=== PATIENT | female | born 1980 | race Caucasian/White ===

== ENCOUNTER → 2016-12-22 | Outpatient (CLI) | payer BC ==
--- NOTE | 2016-12-23 06:01 | US ---
EXAMINATION TYPE: US thyroid st tissue head/neck DATE OF EXAM: 12/22/2016 6:09 PM COMPARISON: NONE CLINICAL HISTORY: E04.9 Goiter. Doctor felt thyroid was enlarged on physical exam GLAND SIZE: Right Lobe: 4.2 x 1.4 x 1.4 cm Overall Parenchyma: homogenous Left Lobe: 4.8 x 1.2 x 1.2 cm Overall Parenchyma: homogeneous Isthmus Thickness: 0.3 cm NODULES RIGHT: # of nodules measured on right: 0 LEFT: # of nodules measured on left: 1 1. 0.5 X 0.3 x 0.5 cm hypoechoic solid nodule at the lower pole with well-defined margins. This no dule is wider than tall and shows no intranodular vascularity. Prior size: No previous ISTHMUS: # of nodules measured in the isthmus: 0 TECHNOLOGIST IMPRESSION: Bilateral neck scanned, probable lymph node visualized within the right nec k measuring 1.2 x 0.4 x 0.6 cm Thyroid gland is normal in size and homogeneous in echotexture. Technologist identifies benign subcen timeter lymph node in the right neck. In the left thyroid medial lower pole technologist identifies 5 mm slightly hypoechoic solid nodule. IMPRESSION: Thyroid gland is normal in size, no worrisome greater than 1 cm solid or cystic nodules are seen.
== END | disposition home or self-care (01) ==
LOC: RADUSMAIN 17:50
PROVIDERS: ATTEND Family Medicine
DX: E04.9 Nontoxic goiter, unspecified (principal)
CPT/HCPCS: 76536

== ENCOUNTER 2019-07-05 13:13 | Inpatient (IN) | payer BC ==
--- NOTE | 2019-07-05 13:45 | ED ---
Abdominal Pain HPI - General Source: patient Mode of arrival: ambulatory Limitations: no limitations <Naz Santos - Last Filed: 07/05/19 16:47> <Jazmín Stone - Last Filed: 07/07/19 14:46> - General Chief Complaint: Abdominal Pain Stated Complaint: Flank/Back Pain Time Seen by Provider: 07/05/19 13:37 - History of Present Illness Initial Comments: 38-year-old female presenting today for chief complaint of right upper quadrant abdominal pain that radiates to the back since 12AM today. States she was woke up tonight from right upper quadrant abdominal pain that radiates towards the back. Patient states that he was woken up in the middle of night with pain, nausea. Patient states she had multiple episodes of yellow vomit this morning. Patient admits to softer stools yesterday. Pain is sharp in nature like a knife, 10/10. That increased with ingestion of food. Patient denies fever, no hematochezia, emesis patient does experience this before. Patient has a history of previous history of hysterectomy otherwise no other abdominal surgeries. Patient last ate cracker earlier this morning > 4 hours prior to arrival in the ER. Patient was drinking water upon arrival to the ER. Remaining ROS (-) inclu ding chest pain, URI symptoms, SOB. Denies tylenol abuse. (Naz Santos) - Related Data Home Medications Medication Instructions Recorded Confirmed No Known Home Medications 07/05/19 07/05/19 Allergies Allergy/AdvReac Type Severity Reaction Status Date / Time No Known Allergies Allergy Verified 07/05/19 14:06 Review of Systems ROS Other: All systems not noted in ROS Statement are negative. <Naz Santos - Last Filed: 07/05/19 16:47> ROS Other: All systems not noted in ROS Statement are negative. <Jazmín Stone - Last Filed: 07/07/19 14:46> ROS Statement: Those systems with pertinent positive or pertinent negative responses have been documented in the HPI. Past Medical History Past Medical History: No Reported History History of Any Multi-Drug Resistant Organisms: None Reported Past Surgical History: Hysterectomy Past Psychological History: No Psychological Hx Reported Smoking Status: Never smoker Past Alcohol Use History: None Reported Past Drug Use History: None Reported <Naz Santos - Last Filed: 07/05/19 16:47> General Exam Limitations: no limitations <Naz Santos - Last Filed: 07/05/19 16:47> - General Exam Comments Initial Comments: General: The patient is awake and alert, in no distress, and does not appear acutely ill. Eye: Pupils are equal, round and reactive to light, extra-ocular movements are intact. No nystagmus. There is normal conjunctiva bilaterally. No signs of icterus. Cardiovascular: There is a regular rate and rhythm. No murmur, rub or gallop is appreciated. Respiratory: Lungs are clear to auscultation, respirations are non-labored, breath sounds are equal. No wheezes, stridor, rales, or rhonchi. Gastrointestinal: Soft, non-distended, significant RUQ tenderness, positive Delgadillo sign the abdomen is otherwise without masses or organomegaly noted. There is guarding noted, no rigidity or lower abdominal tenderness. Musculoskeletal: Normal ROM, no tenderness. Strength 5/5. Sensation intact. Radial pulses equal bilaterally 2+. Neurological: A&O x 3. CN II-XII intact grossly, There are no obvious motor or sensory deficits. Coordination appears grossly intact. Speech is normal. Skin: Skin is warm and dry and no rashes or lesions are noted. Psychiatric: Cooperative, appropriate mood & affect, normal judgment. (Naz Santos) Course Vital Signs 07/05/19 07/05/19 07/05/19 13:22 15:51 17:15 Temperature 98.1 F 97.8 F Pulse Rate 88 77 70 Respiratory 18 18 18 Rate Blood Pressure 134/92 110/85 105/69 O2 Sat by Pulse 99 97 97 Oximetry Medical Decision Making - Lab Data Result diagrams: 07/05/19 14:07 07/05/19 14:07 <Naz Santos - Last Filed: 07/05/19 16:47> - Lab Data Result diagrams: 07/07/19 06:08 07/07/19 06:08 <Jazmín Stone - Last Filed: 07/07/19 14:46> - Medical Decision Making 38-year-old male presents emergency department for chief complaint of abdominal pain, RUQ. Examinations are significantly elevated as well as alkaline phosphatase. Patient denies any Tylenol abuse or alcohol abuse. Hepatitis a negative. Ultrasound revealed cholelithiasis and sludge no fluid surrounding the abdomen-the patients laboratory and history are concerning of developing acute cholecystitis. Discussed case, labs and imaging with attending Dr. Stone. She spoke with Dr. Lawrence who suggests admission to prior to surgical consultation. Patient admitted, and agreeable with care plan. (HoracesaraNaz Brisa) I was available for consultation in the emergency department. The history and physical exam were done by the midlevel provider. I was consulted for this patients care. I reviewed the case with the midlevel provider and based on their presentation of the patient, I agree with the assessment, medical decision making and plan of care as documented. I discussed the case with Dr. Sanchez who accepted admission with Dr. Lawrence to consult. (Jazmín Stone) - Lab Data Lab Results 07/05/19 07/05/19 07/05/19 Range/Units 14:07 14:07 14:07 WBC 5.2 (3.8-10.6) k/uL RBC 5.01 (3.80-5.40) m/uL Hgb 15.7 (11.4-16.0) gm/dL Hct 43.5 (34.0-46.0) % MCV 86.8 (80.0-100.0) fL MCH 31.2 (25.0-35.0) pg MCHC 36.0 (31.0-37.0) g/dL RDW 12.5 (11.5-15.5) % Plt Count 214 (150-450) k/uL Neutrophils % 68 % Lymphocytes % 22 % Monocytes % 8 % Eosinophils % 0 % Basophils % 0 % Neutrophils # 3.5 (1.3-7.7) k/uL Lymphocytes # 1.1 (1.0-4.8) k/uL Monocytes # 0.4 (0-1.0) k/uL Eosinophils # 0.0 (0-0.7) k/uL Basophils # 0.0 (0-0.2) k/uL Sodium 142 (137-145) mmol/L Potassium 3.7 (3.5-5.1) mmol/L Chloride 104 (98-107) mmol/L Carbon Dioxide 29 (22-30) mmol/L Anion Gap 9 mmol/L BUN 13 (7-17) mg/dL Creatinine 0.77 (0.52-1.04) mg/dL Est GFR (CKD-EPI)AfAm >90 (>60 ml/min/1.73 sqM) Est GFR (CKD-EPI)NonAf >90 (>60 ml/min/1.73 sqM) Glucose 112 H (74-99) mg/dL Calcium 9.2 (8.4-10.2) mg/dL Total Bilirubin 3.9 H (0.2-1.3) mg/dL AST 1121 H (14-36) U/L ALT 1040 H (9-52) U/L Alkaline Phosphatase 200 H (38-126) U/L Total Protein 8.0 (6.3-8.2) g/dL Albumin 4.5 (3.5-5.0) g/dL Amylase 32 (30-110) U/L Lipase 102 (23-300) U/L Urine Color Urine Appearance (Clear) Urine pH (5.0-8.0) Ur Specific [place] (1.001-1.035) Urine Protein (Negative) Urine Glucose (UA) (Negative) Urine Ketones (Negative) Urine Blood (Negative) Urine Nitrite (Negative) Urine Bilirubin (Negative) Urine Urobilinogen (<2.0) mg/dL Ur Leukocyte Esterase (Negative) Urine HCG, Qual Not Detected (Not Detectd) Hepatitis A IgM Ab Hep Bs Antigen (Non-Reactive) Hep B Core IgM Ab (Non-Reactive) Hep C IgG Ab (Non-Reactive) 07/05/19 07/05/19 07/05/19 Range/Units 14:07 14:07 15:25 WBC (3.8-10.6) k/uL RBC (3.80-5.40) m/uL Hgb (11.4-16.0) gm/dL Hct (34.0-46.0) % MCV (80.0-100.0) fL MCH (25.0-35.0) pg MCHC (31.0-37.0) g/dL RDW (11.5-15.5) % Plt Count (150-450) k/uL Neutrophils % % Lymphocytes % % Monocytes % % Eosinophils % % Basophils % % Neutrophils # (1.3-7.7) k/uL Lymphocytes # (1.0-4.8) k/uL Monocytes # (0-1.0) k/uL Eosinophils # (0-0.7) k/uL Basophils # (0-0.2) k/uL Sodium (137-145) mmol/L Potassium (3.5-5.1) mmol/L Chloride (98-107) mmol/L Carbon Dioxide (22-30) mmol/L Anion Gap mmol/L BUN (7-17) mg/dL Creatinine (0.52-1.04) mg/dL Est GFR (CKD-EPI)AfAm (>60 ml/min/1.73 sqM) Est GFR (CKD-EPI)NonAf (>60 ml/min/1.73 sqM) Glucose (74-99) mg/dL Calcium (8.4-10.2) mg/dL Total Bilirubin (0.2-1.3) mg/dL AST (14-36) U/L ALT (9-52) U/L Alkaline Phosphatase (38-126) U/L Total Protein (6.3-8.2) g/dL Albumin (3.5-5.0) g/dL Amylase (30-110) U/L Lipase (23-300) U/L Urine Color Dark Yellow Urine Appearance Clear (Clear) Urine pH 7.0 (5.0-8.0) Ur Specific [place] 1.022 (1.001-1.035) Urine Protein Trace H (Negative) Urine Glucose (UA) Negative (Negative) Urine Ketones Negative (Negative) Urine Blood Negative (Negative) Urine Nitrite Negative (Negative) Urine Bilirubin 2+ H (Negative) Urine Urobilinogen 8.0 (<2.0) mg/dL Ur Leukocyte Esterase Negative (Negative) Urine HCG, Qual (Not Detectd) Hepatitis A IgM Ab NEGATIVE Hep Bs Antigen Non-Reactive (Non-Reactive) Hep B Core IgM Ab Non-Reactive (Non-Reactive) Hep C IgG Ab Non-Reactive (Non-Reactive) Disposition Is patient prescribed a controlled substance at d/c from ED?: No Time of Disposition: 16:41 Decision to Admit Reason: Admit from EC Decision Date: 07/05/19 Decision Time: 16:41 <Naz Santos - Last Filed: 07/05/19 16:47> <Jazmín Stone - Last Filed: 07/07/19 14:46> Clinical Impression: Cholecystitis, Abdominal pain, Elevated transaminase level, Elevated alkaline phosphatase level Disposition: ADMITTED IP TO THIS HOSP Condition: Stable
[2019-07-05] MEDS ORDERED: ONDANSETRON 4 MG/2 ML VIAL IVP STA (14:06)
[2019-07-05 14:31] LABS: Appearance,Urine Clear (Clear); Bilirubin,Urine 2+ (Negative); Blood,Urine Negative (Negative); Color,Urine Dark Yellow; Glucose,Urine (UA) Negative (Negative); Ketones,Urine Negative (Negative); Leukocyte Esterase,Urine Negative (Negative); Nitrite,Urine Negative (Negative); Protein,Urine Trace (Negative); Specific Gravity,Urine 1.022 (1.001-1.035)
[2019-07-05 14:32] LABS: Basophils % (A) 0 %; Eosinophils % (A) 0 %; HCT 43.5 % (34.0-46.0); HGB 15.7 gm/dL (11.4-16.0); Lymphocytes # (A) 1.1 k/uL (1.0-4.8); Lymphocytes % (A) 22 %; MCH 31.2 pg (25.0-35.0); MCV 86.8 fL (80.0-100.0); Monocytes # (A) 0.4 k/uL (0-1.0); Monocytes % (A) 8 %; Neutrophils # (A) 3.5 k/uL (1.3-7.7); Neutrophils % (A) 68 %; Platelet Count 214 k/uL (150-450); RBC 5.01 m/uL (3.80-5.40); RDW 12.5 % (11.5-15.5); WBC 5.2 k/uL (3.8-10.6)
[2019-07-05 14:36] LABS: African American GFR (CKD) >90 (>60 ml/min/1.73 sqM); Albumin 4.5 g/dL (3.5-5.0); Alkaline Phosphatase 200 U/L (38-126); Amylase 32 U/L (30-110); Anion Gap 9 mmol/L; Blood Urea Nitrogen 13 mg/dL (7-17); Calcium 9.2 mg/dL (8.4-10.2); Carbon Dioxide 29 mmol/L (22-30); Chloride 104 mmol/L (98-107); Glucose 112 mg/dL (74-99); Potassium 3.7 mmol/L (3.5-5.1); Sodium 142 mmol/L (137-145); Total Bilirubin 3.9 mg/dL (0.2-1.3)
[2019-07-05 14:42] LABS: AST 1121 U/L (14-36)
[2019-07-05 14:54] LABS: ALT 1040 U/L (9-52)
[2019-07-05] MEDS ORDERED: PIPERACILLIN-TAZOBACTAM 3.375 GM in SODIUM CHLORIDE 0.9% 100 ML IVPB STA (15:19)
[2019-07-05] MEDS ORDERED: MORPHINE SULFATE 4 MG/ML SYRINGE IVP STA (15:32)
--- NOTE | 2019-07-05 15:47 | US ---
EXAMINATION TYPE: US abdomen limited DATE OF EXAM: 07/05/2019 COMPARISON: NONE CLINICAL HISTORY: RUQ pain, r/o adán. abd pain with nausea EXAM MEASUREMENTS: Liver Length: 17.2 cm Gallbladder Wall: 0.2 cm CBD: 0.6 cm Right Kidney: 9.5 x 5.0 x 4.8 cm Pancreas: bowel gas obscures most of pancreas Liver: intercostal imaging due to bowel gas and difficult to penetrate Gallbladder: multiple stones seen within neck, moved slightly when rolled LLD Evidence for sonographic Delgadillo's sign: yes CBD: wnl Right Kidney: wnl IMPRESSION: There is cholelithiasis and biliary sludge as well as a positive sonographic Delgadillo sign, however, the common bile duct is within normal limits and no pericholecystic fluid is seen. Addition ally there is no pericholecystic fluid nor gallbladder wall thickening. Acute cholecystitis is not fa vored sonographically. If clinical exam and laboratory values are fitting surgical consultation and H CHAD scan could be considered regardless of the known gallstones.
[2019-07-05 16:24] LABS: Hepatitis A Antibody IgM NEGATIVE
[2019-07-05] MEDS ORDERED: HYDROmorphone 0.5 MG/0.5 ML SYRINGE IVP STA (16:26)
[2019-07-05] MEDS ORDERED: NALOXONE 0.4 MG/ML 1 ML VIAL IV PRN (16:39)
[2019-07-05] MEDS: SODIUM CHLORIDE 0.9% 1,000 ML IV SCH (17:15)
[2019-07-05] MEDS: HYDROmorphone 0.5 MG/0.5 ML SYRINGE IVP PRN ×2 (18:14→23:50)
[2019-07-05] MEDS: LEVOFLOXACIN 500MG-D5W PMX 500 MG in DEXTROSE/WATER 1 100ML.BAG IVPB SCH (19:35)
[2019-07-05] MEDS: FAMOTIDINE 20 MG/2 ML VIAL IV SCH (20:00)
[2019-07-05] MEDS: ONDANSETRON 4 MG/2 ML VIAL IVP PRN (20:01)
[2019-07-05] MEDS: HEPARIN SODIUM,PORCINE 5,000 UNIT/ML 1 ML VIAL SQ SCH (23:52)
[2019-07-05 23:53] LABS: Hepatitis B Core IgM Non-Reactive (Non-Reactive); Hepatitis B Surface Antigen Non-Reactive (Non-Reactive); Hepatitis C IgG Antibody Non-Reactive (Non-Reactive)
[2019-07-06] MEDS: ONDANSETRON 4 MG/2 ML VIAL IVP PRN ×2 (05:16→15:35)
[2019-07-06] MEDS: MORPHINE SULFATE 4 MG/ML SYRINGE IVP PRN ×2 (06:28→15:27)
[2019-07-06] MEDS: SODIUM CHLORIDE 0.9% 1,000 ML IV SCH ×2 (06:30→13:38)
[2019-07-06] MEDS: HEPARIN SODIUM,PORCINE 5,000 UNIT/ML 1 ML VIAL SQ SCH ×3 (08:47→15:35)
[2019-07-06] MEDS: FAMOTIDINE 20 MG/2 ML VIAL IV SCH ×2 (08:51→21:22)
[2019-07-06 08:54] LABS: Basophils % (A) 1 %; Eosinophils % (A) 1 %; HCT 40.3 % (34.0-46.0); HGB 13.7 gm/dL (11.4-16.0); Lymphocytes # (A) 1.1 k/uL (1.0-4.8); Lymphocytes % (A) 25 %; MCHC 34.1 g/dL (31.0-37.0); Mean Platelet Volume 7.2; Monocytes # (A) 0.3 k/uL (0-1.0); Monocytes % (A) 7 %; Neutrophils # (A) 2.8 k/uL (1.3-7.7); Neutrophils % (A) 65 %; Platelet Count 158 k/uL (150-450); RBC 4.43 m/uL (3.80-5.40); RDW 12.8 % (11.5-15.5); WBC 4.2 k/uL (3.8-10.6)
[2019-07-06 09:13] LABS: ALT 734 U/L (9-52); AST 436 U/L (14-36); African American GFR (CKD) >90 (>60 ml/min/1.73 sqM); Albumin 3.5 g/dL (3.5-5.0); Alkaline Phosphatase 187 U/L (38-126); Anion Gap 5 mmol/L; Blood Urea Nitrogen 11 mg/dL (7-17); Calcium 8.1 mg/dL (8.4-10.2); Carbon Dioxide 28 mmol/L (22-30); Chloride 107 mmol/L (98-107); Glucose 95 mg/dL (74-99); Potassium 4.2 mmol/L (3.5-5.1); Sodium 140 mmol/L (137-145); Total Bilirubin 3.3 mg/dL (0.2-1.3); Total Protein 6.3 g/dL (6.3-8.2)
--- NOTE | 2019-07-06 10:49 | P.CONS ---
History of Present Illness - Reason for Consult Consult date: 07/06/19 Choledocholithiasis Requesting physician: Cruzito Sanchez - Chief Complaint Right upper quadrant abdominal pain - History of Present Illness 38 year female admitted with acute right upper quadrant abdominal pain x 1 day with elevated liver enzymes. No hx of this type of pain. Total bilirubin 3.9. AST 1121. ALT 1040. EP 200. Today total bilirubin is 3.3. AST 436. ALT 734. AP 187. White count 4.2. Hemoglobin 13.7. Platelet 158. Hepatitis serology negative. HCG negative. No hx of ETOH, hepatitis or illicit drug abuse. Ultrasound abdomen cholelithiasis biliary sludge CBD 0.6 cm. No pericholecystic fluid or gallbladder wall thickening. Review of Systems Constitutional: Denies fever, chills, sweats, weight gain, or loss. HEENT: Negative for migraines, blurred vision or loss, earaches, drainage, tinnitus, oral mucosal lesions, dysphagia, or odynophagia. CARDIAC: Negative for chest pain, arrhythmias, or palpitation. RESPIRATORY: Negative for shortness of breath, hemoptysis, cough, or sputum production. GI: See HPI for pertinent findings. : Negative for hematuria, urgency, frequency, polyuria, or dysuria. GYNc: Denies possibility of . Negative vaginal discharge. MUSCULOSKELETAL: Negative for muscle aches, swelling, arthritis, and arthralgias. NEUROLOGIC: Negative for stroke or TIA. ENDOCRINE: Negative for thyroid problems. SKIN: Negative for rash or itching. PSYCHIATRIC: Negative history for depression and anxiety Past Medical History Past Medical History: No Reported History History of Any Multi-Drug Resistant Organisms: None Reported Past Surgical History: Hysterectomy Past Psychological History: No Psychological Hx Reported Smoking Status: Never smoker Past Alcohol Use History: None Reported Past Drug Use History: None Reported Medications and Allergies Home Medications Medication Instructions Recorded Confirmed Type No Known Home Medications 07/05/19 07/05/19 History Allergies Allergy/AdvReac Type Severity Reaction Status Date / Time No Known Allergies Allergy Verified 07/05/19 14:06 Physical Exam Vitals: Vital Signs Temp Pulse Pulse Resp BP BP Pulse Ox 07/06/19 08:00 16 07/06/19 07:00 98.6 F 58 L 16 106/65 98 07/06/19 01:55 98.0 F 70 17 109/70 98 07/05/19 19:13 98.1 F 64 18 101/66 98 07/05/19 18:10 98.0 F 66 115/73 07/05/19 17:15 97.8 F 70 18 105/69 97 07/05/19 15:51 77 18 110/85 97 07/05/19 13:22 98.1 F 88 18 134/92 99 Intake and Output 07/05/19 07/06/19 07/06/19 22:59 06:59 14:59 Intake Total 200 Balance 200 Intake: Intake, IV Titration 200 Amount Sodium Chloride 0.9% 1, 200 000 ml @ 100 mls/hr IV . Q10H [facility] Rx#:[id number] Other: Voiding Method Toilet # Voids 1 1 General appearance: The patient is alert, oriented, in no acute distress. HET: Head is normocephalic and atraumatic. Pupils are equal and reactive. Oropharynx is clear without lesions. Neck: Supple without lymphadenopathy. Trachea midline. Heart: S1 S2. Regular rate and rhythm. Lungs: No crackles or wheezes are heard. Abdomen: Soft, nontender, nondistended with bowel sounds. No peritoneal signs. No palpable organomegaly or masses. Extremities: Normal skin color and turgor. No cyanosis, rash, ulceration, clubbing, or edema. Radial and pedal pulses are 2/4 bilaterally. Neurological: No focal deficits. Strength and sensation are grossly intact. Results CBC & Chem 7: 07/06/19 08:39 07/06/19 08:39 Labs: Abnormal Lab Results - Last 24 Hours (Table) 07/05/19 07/05/19 07/06/19 Range/Units 14:07 14:07 08:39 Glucose 112 H (74-99) mg/dL Calcium 8.1 L (8.4-10.2) mg/dL Total Bilirubin 3.9 H 3.3 H (0.2-1.3) mg/dL AST 1121 H 436 H (14-36) U/L ALT 1040 H 734 H (9-52) U/L Alkaline Phosphatase 200 H 187 H (38-126) U/L Urine Protein Trace H (Negative) Urine Bilirubin 2+ H (Negative) US - abdomen: report reviewed (Dr. Nielsen) Assessment and Plan (1) Right upper quadrant abdominal pain Narrative/Plan: 38-year-old female acute right upper quadrant abdominal pain elevated liver enzymes hyperbilirubinemia with underlying cholelithiasis CBD 0.6. Ultrasound suspected choledocholithiasis. Current Visit: Yes Status: Acute Code(s): R10.11 - RIGHT UPPER QUADRANT PAIN SNOMED Code(s): 433082835 (2) Elevated liver enzymes Current Visit: Yes Status: Acute Code(s): R74.8 - ABNORMAL LEVELS OF OTHER SERUM ENZYMES SNOMED Code(s): 125512037 (3) Cholelithiasis Current Visit: Yes Status: Acute Code(s): K80.20 - CALCULUS OF GALLBLADDER W/O CHOLECYSTITIS W/O OBSTRUCTION SNOMED Code(s): 091071271 Plan: 1. ERCP. Nothing by mouth. The aircraft rigging and controls mechanic has discussed the risks, benefits and alternative therapies for the above-mentioned procedure and for both sedation/analgesia as well as necessary blood product administration, if indicated, as they pertain to this patient. The patient has indicated understanding and acceptance of the risks and procedures discussed. Thank you for this kind referral and the opportunity to participate in the care of your patient. This consultation was discussed with Dr. Nielsen. The impre ssion and plan of care have been directed as dictated.
--- NOTE | 2019-07-06 11:33 | P.GSCN ---
<Reyna Huizar - Last Filed: 07/06/19 11:32> History of Present Illness Consult date: 07/06/19 Reason for Consult: Cholelithiasis Requesting physician: Jazmín Stone History of present illness: CHIEF COMPLAINT: Abdominal pain HISTORY OF PRESENT ILLNESS: 38-year-old female who presented to the emergency room with a chief complaint of abdominal pain. Patient reports she began having abdominal pain out of nowhere 2 nights ago around midnight. She states the pain was sharp in nature and was in the epigastric region, right upper quadrant, and radiated to her back. She reports nausea and episodes of emesis prior to coming to the hospital. She reports mild nausea this morning but no further episodes of emesis. She is currently rating her pain as 6 out of 10 this morning. She reports having darker urine over the past few days. PAST MEDICAL HISTORY: See list. PAST SURGICAL HISTORY: See list. SOCIAL HISTORY: No illicit drug use. REVIEW OF SYSTEMS: CONSTITUTIONAL: Denies fever or chills. HEENT: Denies blurred vision, vision changes, or eye pain. Denies hemoptysis CARDIOVASCULAR: Denies chest pain or pressure. RESPIRATORY: No shortness of breath. GASTROINTESTINAL: Refer to HPI for pertinent findings HEMATOLOGIC: Denies bleeding disorders. GENITOURINARY: Denies any blood in urine. Reports dark urine. SKIN: Denies pruitis. Denies rash. PHYSICAL EXAM: VITAL SIGNS: Reviewed. GENERAL: Well-developed in no acute distress. HEENT: No sclera icterus. Extraocular movements grossly intact. Moist buccal mucosa. Head is atraumatic, normocephalic. ABDOMEN: Soft. Nondistended. Tenderness with palpation to right upper quadrant. Positive bowel sounds. No peritoneal signs. NEUROLOGIC: Alert and oriented. Cranial nerves II through XII grossly intact. LABORATORY DATA: Laboratory data upon admission reveals white count 5.2. Hemoglobin 15.7. Bilirubin 3.9. AST 1121. ALT 1040. Alkaline phosphatase 200. Amylase 32. Lipase 102 IMAGING: Abdominal ultrasound: Cholelithiasis and biliary sludge as well as positive sonographic Delgadillo sign. Bile duct is within normal limits. No pericholecystic fluid. No bladder wall thickening. Multiple stones visualized with no neck of the gallbladder. ASSESSMENT: 1. Abdominal pain, nausea, vomiting 2. Cholelithiasis 3. Suspected choledocholithiasis 4. Hyperbilirubinemia 5. Transaminitis PLAN: 1. NPO. Continue IV fluids 2. Pain control 3. Continue Levaquin 4. GI on consult. Anticipate ERCP 5. Laparoscopic cholecystectomy when medically stable. Possibly performed on Tuesday with Dr. Lawrence Nurse practitioner note has been reviewed by physician. Signing provider agrees with the documented findings, assessment, and plan of care. Past Medical History Past Medical History: No Reported History History of Any Multi-Drug Resistant Organisms: None Reported Past Surgical History: Hysterectomy Past Psychological History: No Psychological Hx Reported Smoking Status: Never smoker Past Alcohol Use History: None Reported Past Drug Use History: None Reported Medications and Allergies Home Medications Medication Instructions Recorded Confirmed Type No Known Home Medications 07/05/19 07/05/19 History Allergies Allergy/AdvReac Type Severity Reaction Status Date / Time No Known Allergies Allergy Verified 07/05/19 14:06 Surgical - Exam Vital Signs Temp Pulse Resp BP Pulse Ox 98.1 F 88 18 134/92 99 07/05/19 13:22 07/05/19 13:22 07/05/19 13:22 07/05/19 13:22 07/05/19 13:22 Results - Labs 07/06/19 08:39 07/06/19 08:39 Abnormal Lab Results - Last 24 Hours (Table) 07/05/19 07/05/19 07/06/19 Range/Units 14:07 14:07 08:39 Glucose 112 H (74-99) mg/dL Calcium 8.1 L (8.4-10.2) mg/dL Total Bilirubin 3.9 H 3.3 H (0.2-1.3) mg/dL AST 1121 H 436 H (14-36) U/L ALT 1040 H 734 H (9-52) U/L Alkaline Phosphatase 200 H 187 H (38-126) U/L Urine Protein Trace H (Negative) Urine Bilirubin 2+ H (Negative) Diabetes panel 07/05/19 07/06/19 Range/Units 14:07 08:39 Sodium 142 140 (137-145) mmol/L Potassium 3.7 4.2 (3.5-5.1) mmol/L Chloride 104 107 (98-107) mmol/L Carbon Dioxide 29 28 (22-30) mmol/L BUN 13 11 (7-17) mg/dL Creatinine 0.77 0.73 (0.52-1.04) mg/dL Glucose 112 H 95 (74-99) mg/dL Calcium 9.2 8.1 L (8.4-10.2) mg/dL AST 1121 H 436 H (14-36) U/L ALT 1040 H 734 H (9-52) U/L Alkaline Phosphatase 200 H 187 H (38-126) U/L Total Protein 8.0 6.3 (6.3-8.2) g/dL Albumin 4.5 3.5 (3.5-5.0) g/dL Calcium panel 07/05/19 07/06/19 Range/Units 14:07 08:39 Calcium 9.2 8.1 L (8.4-10.2) mg/dL Albumin 4.5 3.5 (3.5-5.0) g/dL Pituitary panel 07/05/19 07/06/19 Range/Units 14:07 08:39 Sodium 142 140 (137-145) mmol/L Potassium 3.7 4.2 (3.5-5.1) mmol/L Chloride 104 107 (98-107) mmol/L Carbon Dioxide 29 28 (22-30) mmol/L BUN 13 11 (7-17) mg/dL Creatinine 0.77 0.73 (0.52-1.04) mg/dL Glucose 112 H 95 (74-99) mg/dL Calcium 9.2 8.1 L (8.4-10.2) mg/dL Adrenal panel 07/05/19 07/06/19 Range/Units 14:07 08:39 Sodium 142 140 (137-145) mmol/L Potassium 3.7 4.2 (3.5-5.1) mmol/L Chloride 104 107 (98-107) mmol/L Carbon Dioxide 29 28 (22-30) mmol/L BUN 13 11 (7-17) mg/dL Creatinine 0.77 0.73 (0.52-1.04) mg/dL Glucose 112 H 95 (74-99) mg/dL Calcium 9.2 8.1 L (8.4-10.2) mg/dL Total Bilirubin 3.9 H 3.3 H (0.2-1.3) mg/dL AST 1121 H 436 H (14-36) U/L ALT 1040 H 734 H (9-52) U/L Alkaline Phosphatase 200 H 187 H (38-126) U/L Total Protein 8.0 6.3 (6.3-8.2) g/dL Albumin 4.5 3.5 (3.5-5.0) g/dL <MelindaSandip - Last Filed: 07/06/19 13:27> History of Present Illness History of present illness: As above. Patient with lab values and presentation suggesting the presence of choledocholithiasis. Agree with plans for ERCP later today. Appreciate GIs quick response. Will tentatively plan cholecystectomy either Tuesday or possibly as an outpatient. Surgical - Exam Vital Signs Temp Pulse Resp BP Pulse Ox 98.1 F 88 18 134/92 99 07/05/19 13:22 07/05/19 13:22 07/05/19 13:22 07/05/19 13:22 07/05/19 13:22 Results - Labs 07/06/19 08:39 07/06/19 08:39 Abnormal Lab Results - Last 24 Hours (Table) 07/05/19 07/05/19 07/06/19 Range/Units 14:07 14:07 08:39 Glucose 112 H (74-99) mg/dL Calcium 8.1 L (8.4-10.2) mg/dL Total Bilirubin 3.9 H 3.3 H (0.2-1.3) mg/dL AST 1121 H 436 H (14-36) U/L ALT 1040 H 734 H (9-52) U/L Alkaline Phosphatase 200 H 187 H (38-126) U/L Urine Protein Trace H (Negative) Urine Bilirubin 2+ H (Negative) Diabetes panel 07/05/19 07/06/19 Range/Units 14:07 08:39 Sodium 142 140 (137-145) mmol/L Potassium 3.7 4.2 (3.5-5.1) mmol/L Chloride 104 107 (98-107) mmol/L Carbon Dioxide 29 28 (22-30) mmol/L BUN 13 11 (7-17) mg/dL Creatinine 0.77 0.73 (0.52-1.04) mg/dL Glucose 112 H 95 (74-99) mg/dL Calcium 9.2 8.1 L (8.4-10.2) mg/dL AST 1121 H 436 H (14-36) U/L ALT 1040 H 734 H (9-52) U/L Alkaline Phosphatase 200 H 187 H (38-126) U/L Total Protein 8.0 6.3 (6.3-8.2) g/dL Albumin 4.5 3.5 (3.5-5.0) g/dL Calcium panel 07/05/19 07/06/19 Range/Units 14:07 08:39 Calcium 9.2 8.1 L (8.4-10.2) mg/dL Albumin 4.5 3.5 (3.5-5.0) g/dL Pituitary panel 07/05/19 07/06/19 Range/Units 14:07 08:39 Sodium 142 140 (137-145) mmol/L Potassium 3.7 4.2 (3.5-5.1) mmol/L Chloride 104 107 (98-107) mmol/L Carbon Dioxide 29 28 (22-30) mmol/L BUN 13 11 (7-17) mg/dL Creatinine 0.77 0.73 (0.52-1.04) mg/dL Glucose 112 H 95 (74-99) mg/dL Calcium 9.2 8.1 L (8.4-10.2) mg/dL Adrenal panel 07/05/19 07/06/19 Range/Units 14:07 08:39 Sodium 142 140 (137-145) mmol/L Potassium 3.7 4.2 (3.5-5.1) mmol/L Chloride 104 107 (98-107) mmol/L Carbon Dioxide 29 28 (22-30) mmol/L BUN 13 11 (7-17) mg/dL Creatinine 0.77 0.73 (0.52-1.04) mg/dL Glucose 112 H 95 (74-99) mg/dL Calcium 9.2 8.1 L (8.4-10.2) mg/dL Total Bilirubin 3.9 H 3.3 H (0.2-1.3) mg/dL AST 1121 H 436 H (14-36) U/L ALT 1040 H 734 H (9-52) U/L Alkaline Phosphatase 200 H 187 H (38-126) U/L Total Protein 8.0 6.3 (6.3-8.2) g/dL Albumin 4.5 3.5 (3.5-5.0) g/dL
[2019-07-06] MEDS ORDERED: INDOMETHACIN 50MG SUPPOSITORY RECTAL ONE (13:00)
[2019-07-06] MEDS ORDERED: LIDOCAINE 1% INJ 10MG/ML (20 ML MDV) ONE (14:35)
[2019-07-06] MEDS ORDERED: GLYCOPYRROLATE 0.2 MG/ML 2 ML VIAL ONE (14:35)
[2019-07-06] MEDS ORDERED: IV FLUID CONTINUATION 500 ML IV ONE (14:35)
[2019-07-06] MEDS ORDERED: PROPOFOL 10 MG/ML 20 ML VIAL IV ONE (14:35)
[2019-07-06] MEDS ORDERED: IOPAMIDOL-300 50ML BTL MISCELLANE ONE ×2 (14:43→14:45)
--- NOTE | 2019-07-06 15:06 | P.PCN ---
Date of Procedure: 07/06/19 Procedure(s) Performed: Brief history: Patient is a 38 year-old pleasant lady scheduled for an ERCP as part of evaluation of abdominal pain and elevated bilirubin and serum transaminases for the last 2 days' duration. Labs show bilirubin of 3.5 and elevated serum transaminases. Ultrasound of the abdomen showed gallstones. Because of clinical suspicion for choledocholithiasis she is scheduled for an ERCP today. Procedure performed: ERCP with biliary sphincterotomy and balloon sweep Preoperative diagnoses: Abdominal pain/elevated LFTs and jaundice of 2 days' duration IV sedation per anesthesia: Procedure: After informed consent was obtained from the patient and after the risks benefits and complications including bleeding perforation and pancreatitis explained in detail the patient was brought into the endoscopy unit. The patient was placed in prone position and IV conscious sedation was administered by anesthesia under continuous monitoring. The Olympus side-viewing duodenoscope was then inserted into the mouth and esophagus intubated without any difficulty. The scope was gradually advanced into the stomach and duodenum. The major papilla was identified without any difficulty. Initial cannulation resulted in opacification of the pancreatic duct that appeared normal. Subsequently the common bile duct was cannulated without any difficulty. Upon injection of the dye the common bile duct measured at least 8 mm in diameter with a small filling defect in the distal common bile duct. No intrahepatic biliary ductal dilation noted. At this time a guidewire was passed through the catheter which was exchanged with a biliary sphincterotome and biliary sphincterotomy was performed at 12 o'clock position and was extended to 1 cm in length. Following this an 8.5 mm balloon was passed over the guidewire into the proximal CBD, gently inflated and withdrawn and did not see any stones exiting the ampulla. An occlusion cholangiogram was performed and no filling defects were noted. At this time the procedure was terminated. Patient tolerated the procedure well. Impression: 1. Slightly dilated common bile duct with a small filling defect in the distal CBD status post biliary sphincterotomy and balloon sweep as described above 2. Normal-appearing pancreatic duct Recommendations: The findings of this examination were discussed with the patient as well as a family. She'll be started on a clear liquid diet. Labs will be repeated in the morning.
[2019-07-06] MEDS: HYDROmorphone 0.5 MG/0.5 ML SYRINGE IVP PRN ×2 (17:16→21:23)
[2019-07-06] MEDS: LEVOFLOXACIN 500MG-D5W PMX 500 MG in DEXTROSE/WATER 1 100ML.BAG IVPB SCH (19:42)
--- NOTE | 2019-07-06 21:21 | P.HPIM ---
History of Present Illness H&P Date: 07/06/19 this a pleasant 38-year-old white female who was admitted at having right upper quadrant abdominal pain to radiating to her mid back and positive for acute cholelithiasis. She states that she has not been feeling well for the past few days and developed a right upper quadrant abdominal pain after a large meal which consist of greasy topical salad. On admission she was subsequently found had markedly elevated liver function tests and bilirubin she is currently nothing by mouth awaitingsurgical and gastrointestinal review. She currently had a double dose of morphine denies any pain nausea vomiting. Review of Systems GENERAL: Patient denies fever. Denies chills. EYES: Denies blurred vision. Denies vision changes. Denies eye pain. EARS, NOSE, MOUTH, & THROAT: Denies headache. Denies sore throat. Denies ear pain. RESPIRATORY: Denies cough. Denies shortness of breath. Denies sputum production. Denies hemoptysis. CARDIOVASCULAR: Denies chest pain or pressure. Denies palpitations. Denies arrhythmias. GASTROINTESTINAL: admits to abdominal pain. has had diarrhea and constipation with movement over the nausea. Denies vomiting. Denies heartburn. Denies blood in the stool. GENITOURINARY: Denies urinary frequency. Denies burning. Denies dysuria. Denies cloudy urine. Denies blood in the urine. MUSCULOSKELETAL: Denies myalgias. Denies joint swelling. Denies decreased range of motion beyond patients baseline. INTEGUMENTARY: Denies pruitis. Denies rash. PSYCHIATRIC: Denies suicidal or homicial ideations. ENDOCRINE: Denies weight change. Denies polydipsia. Denies polyuria. HEMATOLOGIC: Denies bleeding disorders. Past Medical History Past Medical History: No Reported History History of Any Multi-Drug Resistant Organisms: None Reported Past Surgical History: Hysterectomy Past Psychological History: No Psychological Hx Reported Smoking Status: Never smoker Past Alcohol Use History: None Reported Past Drug Use History: None Reported Medications and Allergies Home Medications Medication Instructions Recorded Confirmed Type No Known Home Medications 07/05/19 07/05/19 History Allergies Allergy/AdvReac Type Severity Reaction Status Date / Time No Known Allergies Allergy Verified 07/05/19 14:06 Physical Exam Osteopathic Statement: *. No significant issues noted on an osteopathic structural exam other than those noted in the History and Physical/Consult. Vitals: Vital Signs Temp Pulse Resp BP BP Pulse Ox 07/06/19 19:40 98.2 F 53 L 18 111/74 98 07/06/19 17:27 64 121/80 97 07/06/19 17:12 56 L 114/77 97 07/06/19 16:42 63 124/78 99 07/06/19 16:27 53 L 119/80 97 07/06/19 16:12 52 L 117/79 97 07/06/19 15:57 53 L 129/85 97 07/06/19 15:42 72 123/85 99 07/06/19 15:27 98.2 F 76 16 160/80 98 07/06/19 14:18 98.8 F 60 18 122/85 99 07/06/19 08:00 16 07/06/19 07:00 98.6 F 58 L 16 106/65 98 07/06/19 01:55 98.0 F 70 17 109/70 98 Intake and Output 07/06/19 07/06/19 07/06/19 06:59 14:59 22:59 Intake Total 200 Balance 200 Intake: IV 200 Other: Voiding Method Toilet # Voids 1 2 GENERAL: This is a -38year-old in no apparent distress at the time of examination. Pleasant and cooperative. HEENT: Head is atraumatic, normocephalic. Pupils are equal, round, and reactive to light. Sclerae anicteric. Conjunctivae are clear. Mucus membranes of the mouth are moist. Neck is supple. RESPIRATORY: Clear to auscultation. No wheezes, rales, or rhonchi. No use of accessory muscles. Patient maintaining oxygen saturation greater than 92%. No chest wall tenderness is noted on palpation or with deep breathing. CARDIOVASCULAR: Regular rate and rhythm. S1 and S2 noted. No systolic or diastolic murmur auscultated. No JVD noted. No S3 or S4 noted. GASTROINTESTINAL: No distention noted. Abdomen soft and round. Normal active bowel sounds auscultated x 4 quadrants. pain or tenderness noted upon palpation right upper quadrant. INTEGUMENTARY: No cyanosis. No jaundice. No rashes noted. No cellulitis noted. EXTREMITIES: 2+ peripheral pulses. No evidence of peripheral edema. No calf tenderness noted. NEUROLOGIC: Cranial nerves II-XII intact. PSYCHIATRIC: Awake, alert, and oriented X 3. Appropriate affect. Intact judgement and insight. Results CBC & Chem 7: 07/06/19 08:39 07/06/19 08:39 Labs: Abnormal Lab Results - Last 24 Hours (Table) 07/06/19 Range/Units 08:39 Calcium 8.1 L (8.4-10.2) mg/dL Total Bilirubin 3.3 H (0.2-1.3) mg/dL AST 436 H (14-36) U/L ALT 734 H (9-52) U/L Alkaline Phosphatase 187 H (38-126) U/L Microbiology - Last 24 Hours (Table) 07/05/19 15:40 Blood Culture - Preliminary Blood No Growth after 24 hours Thrombosis Risk Factor Assmnt - Choose All That Apply Any of the Below Risk Factors Present?: No Other Risk Factors: No Thrombosis Risk Factor Assessment Level: Very Low Risk Assessment and Plan (1) Abdominal pain Current Visit: Yes Status: Acute Code(s): R10.9 - UNSPECIFIED ABDOMINAL PAIN SNOMED Code(s): 27115682 (2) Cholecystitis Current Visit: Yes Status: Acute Code(s): K81.9 - CHOLECYSTITIS, UNSPECIFIED SNOMED Code(s): 78159959 (3) Cholelithiasis Current Visit: Yes Status: Acute Code(s): K80.20 - CALCULUS OF GALLBLADDER W/O CHOLECYSTITIS W/O OBSTRUCTION SNOMED Code(s): 978366286 (4) Elevated alkaline phosphatase level Current Visit: Yes Status: Acute Code(s): R74.8 - ABNORMAL LEVELS OF OTHER SERUM ENZYMES SNOMED Code(s): 861319456 (5) Elevated liver enzymes Current Visit: Yes Status: Acute Code(s): R74.8 - ABNORMAL LEVELS OF OTHER SERUM ENZYMES SNOMED Code(s): 057612705 (6) Elevated transaminase level Current Visit: Yes Status: Acute Code(s): R74.0 - NONSPEC ELEV OF LEVELS OF TRANSAMNS & LACTIC ACID DEHYDRGNSE SNOMED Code(s): 886662875 (7) Right upper quadrant abdominal pain Current Visit: Yes Status: Acute Code(s): R10.11 - RIGHT UPPER QUADRANT PAIN SNOMED Code(s): 367059219 Plan: admit patient to hospital leave nothing by mouth surgical Dr. Monroe team to see patientbut first they recommend patient undergo GI evaluation for choled ocholithiasis. Patient is comfortable at this current time no jaundice no noted.
[2019-07-07] MEDS: HEPARIN SODIUM,PORCINE 5,000 UNIT/ML 1 ML VIAL SQ SCH ×2 (01:44→08:12)
[2019-07-07] MEDS: HYDROmorphone 0.5 MG/0.5 ML SYRINGE IVP PRN ×2 (01:44→08:20)
[2019-07-07] MEDS: SODIUM CHLORIDE 0.9% 1,000 ML IV SCH ×2 (01:45→10:18)
[2019-07-07] MEDS: ONDANSETRON 4 MG/2 ML VIAL IVP PRN (03:12)
[2019-07-07 06:50] LABS: Basophils % (A) 0 %; Eosinophils % (A) 0 %; HCT 36.5 % (34.0-46.0); HGB 12.9 gm/dL (11.4-16.0); Lymphocytes # (A) 0.9 k/uL (1.0-4.8); Lymphocytes % (A) 22 %; MCH 31.8 pg (25.0-35.0); MCHC 35.5 g/dL (31.0-37.0); MCV 89.6 fL (80.0-100.0); Mean Platelet Volume 5.9; Monocytes # (A) 0.3 k/uL (0-1.0); Monocytes % (A) 7 %; Neutrophils # (A) 2.9 k/uL (1.3-7.7); Neutrophils % (A) 69 %; Platelet Count 164 k/uL (150-450); RBC 4.07 m/uL (3.80-5.40); RDW 12.7 % (11.5-15.5); WBC 4.2 k/uL (3.8-10.6)
[2019-07-07 07:05] LABS: ALT 518 U/L (9-52); AST 156 U/L (14-36); African American GFR (CKD) >90 (>60 ml/min/1.73 sqM); Albumin 3.3 g/dL (3.5-5.0); Alkaline Phosphatase 167 U/L (38-126); Anion Gap 6 mmol/L; Blood Urea Nitrogen 10 mg/dL (7-17); Carbon Dioxide 27 mmol/L (22-30); Chloride 106 mmol/L (98-107); Glucose 90 mg/dL (74-99); Potassium 4.2 mmol/L (3.5-5.1); Sodium 139 mmol/L (137-145); Total Bilirubin 1.5 mg/dL (0.2-1.3)
[2019-07-07] MEDS: FAMOTIDINE 20 MG/2 ML VIAL IV SCH (08:12)
[2019-07-07 08:42] VITALS: BP 106/70; PULSE 75; RESP 18; TEMP 98.7
--- NOTE | 2019-07-07 11:05 | PN ---
PROGRESS NOTE DATE OF DICTATION: 07/07/2019 The patient is a 38-year-old pleasant white female admitted to the hospital with severe epigastric and right upper quadrant abdominal pain. She was noted to have elevated LFTs and jaundice with a T-bilirubin at 3.9 g/dL. Serum ALT and AST were 1040 and 1121, respectively. Ultrasound of the gallbladder did show evidence of gallstones and mild biliary ductal dilation. She underwent an ERCP yesterday that showed slightly dilated CBD with a small filling defect. She underwent biliary sphincterotomy and balloon sweep. Following the procedure, she started complaining of severe epigastric pain and was given pain medications. This morning she is feeling much better; still has some epigastric discomfort but no nausea, vomiting. No fever, chills, night sweats. PHYSICAL EXAMINATION: She appears comfortable. No apparent distress. VITAL SIGNS: Blood pressure 106/70, pulse rate 75, temperature 98.7. HEENT examination unremarkable. Conjunctivae pink. Sclerae anicteric. Oral cavity no lesions. NECK: No JVD or lymph node enlargement. CHEST: Clear to auscultation. HEART: Regular rate and rhythm. ABDOMEN: Soft. Bowel sounds are positive. No organomegaly. There was very minimal tenderness in the epigastric area. EXTREMITIES: No pedal edema. SKIN: No rashes. NEUROLOGIC: Alert and oriented x3. No focal deficits. LABS: T-bilirubin is down to 1.5. AST is 156. ALT is 518. Alkaline phosphatase 163 and lipase is 723. IMPRESSION: 1. Elevated liver function tests and jaundice associated with epigastric and right upper quadrant abdominal pain for the last 2 days' duration, status post endoscopic retrograde cholangiopancreatography yesterday that showed a dilated common bile duct with a small filling defect, status post biliary sphincterotomy and balloon sweep. Labs significantly improving. 2. Post endoscopic retrograde cholangiopancreatography mild pancreatitis, resolving. RECOMMENDATIONS: 1. Clear liquid diet. 2. Pain medications as needed. 3. Await Dr. Lawrence's recommendations for possible cholecystectomy during this hospitalization. Thank you for this consultation. MMODL / IJN: [id number] /
--- NOTE | 2019-07-07 11:08 | P.DS ---
Providers Date of admission: 07/05/19 16:44 Attending physician: Cruzito Sanchez Consults: 07/05/19 16:44 Consult Physician Urgent Consulting Provider: Sandip Lawrence Consult Reason/Comments: acute cholelithiasis, transaminitis Do you want consulting provider notified?: Already Contacted 07/05/19 17:58 Consult Physician Routine Consulting Provider: Aj Bryant Consult Reason/Comments: Choledocholithiasis Do you want consulting provider notified?: Yes, Notify in am Primary care physician: Cruzito Sanchez [facility] Course: Patient is a pleasant but 38-year-old female admitted for choledocholithiasis an d gallstones. Patient underwent the ERCP to my, discussed with the gastric probably will not require any antibiotics patient will be discharged today if cleared by general surgery follow with general surgery as an outpatient for outpatient cholecystectomy. She is not requiring any pain medications. PHYSICAL EXAMINATION: GENERAL: The patient is alert and oriented x3, not in any acute distress. Well developed, well nourished. HEENT: Pupils are round and equally reacting to light. EOMI. No scleral icterus. No conjunctival pallor. Normocephalic, atraumatic. No pharyngeal erythema. No thyromegaly. CARDIOVASCULAR: S1 and S2 present. No murmurs, rubs, or gallops. PULMONARY: Chest is clear to auscultation, no wheezing or crackles. ABDOMEN: Soft, nontender, nondistended, normoactive bowel sounds. No palpable organomegaly. MUSCULOSKELETAL: No joint swelling or deformity. EXTREMITIES: No cyanosis, clubbing, or pedal edema. NEUROLOGICAL: Gross neurological examination did not reveal any focal deficits. SKIN: No rashes. Further chronic medical problems has physician course please refer to dictation from Dr. Sanchez from yesterday Patient Condition at Discharge: Stable Plan - Discharge Summary Discharge Rx Participant: Yes New Discharge Prescriptions: Continue No Known Home Medications Discharge Medication List No Known Home Medications 07/05/19 [History] Follow up Appointment(s)/Referral(s): Sandip Lawrence MD [Medical Doctor] - 1 Week Cruizto Sanchez DO [Primary Care Provider] - 3 Days Patient Instructions/Handouts: Cholecystitis (ED) Discharge Disposition: HOME SELF-CARE
--- NOTE | 2019-07-07 12:16 | P.PN ---
Subjective Progress Note Date: 07/07/19 CHIEF COMPLAINT: Gallstone pancreatitis HISTORY OF PRESENT ILLNESS: The patient is a 38-year-old female who came in with gallstone pancreatitis. Overall, pain along abdomen moderately improved since admission. She is status post ERCP. She reports primary right flank/rib pain. She is tolerating diet. No fevers. ROS: No reports of nausea and vomiting. No fevers or chills. No new chest pain. No productive sputum PHYSICAL EXAM: VITAL SIGNS: Reviewed CONSTITUTIONAL: Well developed and in no acute distress. EYES: Conjuctivae without sclera icterus. Extraocular movements grossly intact. HEAD, EARS, NOSE, THROAT: Moist buccal mucosa. Head is atraumatic, normocephalic. Hears conversational speech. No nasal drainage. NECK: Supple. No thyroidomegaly. RESPIRATORY: Non-labored respirations and equal bilateral excursions. CARDIOVASCULAR: Palpable 2+ radial pulses. Regular rate. Regular rhythm. ABDOMEN: Soft. No peritonitis. MUSCULOSKELETAL: No gross deformity of the lower extremities noted. No clubbing. No cyanosis. SKIN: Good skin turgor. Well perfused. NEUROLOGIC: Cranial nerves I through XII grossly intact. No focal or lateralizing signs. PSYCH: Appropriate affect. Alert and oriented to person, place and time. CLINCAL LABS: White blood cell count normal. LFTs have improved. ASSESSMENT: 1. Gallstone pancreatitis PLAN: 1. I have personally gone over low fat diet and options to prevent recurrence of another attack. 2. She is encouraged to return to the hospital should her pain recur. 3. Follow up with Dr. Lawrence this week. Objective - Vital Signs Vital signs: Vital Signs Temp 98.7 F 07/07/19 07:00 Pulse 75 07/07/19 07:00 Resp 18 07/07/19 07:00 BP 106/70 07/07/19 07:00 Pulse Ox 97 07/07/19 07:00 Intake & Output 07/06/19 07/07/19 07/07/19 18:59 06:59 18:59 Intake Total 200 Balance 200 Intake: IV 200 Other: Voiding Method Toilet Toilet # Voids 2 2 - Labs CBC & Chem 7: 07/07/19 06:08 07/07/19 06:08 Labs: Abnormal Lab Results - Last 24 Hours (Table) 07/07/19 07/07/19 Range/Units 06:08 06:08 Lymphocytes # 0.9 L (1.0-4.8) k/uL Calcium 8.0 L (8.4-10.2) mg/dL Total Bilirubin 1.5 H (0.2-1.3) mg/dL AST 156 H (14-36) U/L ALT 518 H (9-52) U/L Alkaline Phosphatase 167 H (38-126) U/L Total Protein 6.0 L (6.3-8.2) g/dL Albumin 3.3 L (3.5-5.0) g/dL Lipase 723 H (23-300) U/L Microbiology - Last 24 Hours (Table) 07/05/19 15:40 Blood Culture - Preliminary Blood No Growth after 24 hours Assessment and Plan (1) Gallstone pancreatitis Status: Acute Code(s): K85.10 - BILIARY ACUTE PANCREATITIS WITHOUT NECROSIS OR INFECTION SNOMED Code(s): 08618951 (2) Cholecystitis Status: Acute Code(s): K81.9 - CHOLECYSTITIS, UNSPECIFIED SNOMED Code(s): 60059981 (3) Cholelithiasis Status: Acute Code(s): K80.20 - CALCULUS OF GALLBLADDER W/O CHOLECYSTITIS W/O OBSTRUCTION SNOMED Code(s): 445056181 (4) Elevated alkaline phosphatase level Status: Acute Code(s): R74.8 - ABNORMAL LEVELS OF OTHER SERUM ENZYMES SNOMED Code(s): 668843286 (5) Elevated liver enzymes Status: Acute Code(s): R74.8 - ABNORMAL LEVELS OF OTHER SERUM ENZYMES SNOMED Code(s): 881754343 (6) Right upper quadrant abdominal pain Status: Acute Code(s): R10.11 - RIGHT UPPER QUADRANT PAIN SNOMED Code(s): 908017880
--- NOTE | 2019-07-07 21:13 | FL ---
Fluoroscopy INDICATION: Pain FINDINGS: Fluoroscopy time: 22 seconds. Images obtained: 1. IMPRESSIONS: 1. Documentation of fluoroscopy.
== END 2019-07-07 12:15 | disposition home or self-care (01) | DRG 439 ==
LOC: EC 13:13 → 4SSUR 16:44
PROVIDERS: ADMIT Family Medicine; ATTEND Family Medicine
PROC: 0FC98ZZ Extirpation of Matter from Common Bile Duct, Via Natural or Artificial Opening Endoscopic (ICD-10-PCS; principal; 2019-07-06 07:30)
DX: K85.10 Biliary acute pancreatitis without necrosis or infection (principal); K80.64 Calculus of gallbladder and bile duct with chronic cholecystitis without obstruction; Z90.710 Acquired absence of both cervix and uterus
CPT/HCPCS: 36415; 43262; 43277; 74330; 76705; 80053; 80074; 81003; 81025; 82150; 83690; 85025; 87040; 96365; 96375; 99285

== ENCOUNTER → 2019-07-11 | Outpatient (CLI) | payer BC ==
[2019-07-11 15:50] LABS: HCT 39.5 % (34.0-46.0); HGB 13.4 gm/dL (11.4-16.0); MCH 31.4 pg (25.0-35.0); MCHC 33.9 g/dL (31.0-37.0); MCV 92.7 fL (80.0-100.0); Mean Platelet Volume 6.5; Platelet Count 193 k/uL (150-450); RBC 4.26 m/uL (3.80-5.40); WBC 5.2 k/uL (3.8-10.6)
[2019-07-11 16:00] LABS: ALT 231 U/L (9-52); AST 53 U/L (14-36); African American GFR (CKD) >90 (>60 ml/min/1.73 sqM); Albumin 4.1 g/dL (3.5-5.0); Albumin/Globulin Ratio 1.4; Alkaline Phosphatase 143 U/L (38-126); Anion Gap 7 mmol/L; Blood Urea Nitrogen 9 mg/dL (7-17); Calcium 8.6 mg/dL (8.4-10.2); Carbon Dioxide 30 mmol/L (22-30); Chloride 105 mmol/L (98-107); Glucose 94 mg/dL (74-99); Potassium 3.4 mmol/L (3.5-5.1); Sodium 142 mmol/L (137-145); Total Bilirubin 0.6 mg/dL (0.2-1.3); Total Protein 7.1 g/dL (6.3-8.2)
== END | disposition home or self-care (01) ==
LOC: LABWHC1 15:28
PROVIDERS: ATTEND Surgery
DX: K81.0 Acute cholecystitis (principal)
CPT/HCPCS: 36415; 80053; 85027

== ENCOUNTER 2019-07-12 11:37 | Day surgery (SDC) | payer BC ==
[~2019-07-12 11:37] MED LIST: HEPARIN SODIUM,PORCINE 5,000 UNIT/ML 1 ML VIAL SQ ONE
[2019-07-12] MEDS ORDERED: LACTATED RINGERS 1,000 ML IV ONE ×2 (12:00→15:14)
[2019-07-12] MEDS ORDERED: ONDANSETRON 4 MG/2 ML VIAL IVP ONE (12:05)
[2019-07-12] MEDS ORDERED: DEXAMETHASONE SOD PHOSPHATE 10 MG/ML 1 ML VIAL IV ONE (12:06)
[2019-07-12] MEDS ORDERED: SCOPOLAMINE 1.5MG/72HR PATCH TRANSDERM ONE (12:07)
[2019-07-12] MEDS ORDERED: PROPOFOL 10 MG/ML 20 ML VIAL IV ONE (12:50)
[2019-07-12] MEDS ORDERED: SUCCINYLCHOLINE CHLORIDE 100 MG/5 ML SYR IV ONE (12:50)
[2019-07-12] MEDS ORDERED: fentaNYL (PF) 50 MCG/ML 50 ML VIAL ONE (12:50)
[2019-07-12] MEDS ORDERED: KETOROLAC 30 MG/ML 1 ML VIAL ONE (12:50)
[2019-07-12] MEDS ORDERED: NEOSTIGMINE 1 MG/ML 10 ML VIAL ONE (12:50)
[2019-07-12] MEDS ORDERED: ROCURONIUM BROMIDE 10 MG/ML 10 ML VIAL IV ONE (12:50)
[2019-07-12] MEDS ORDERED: MIDAZOLAM 2 MG/2 ML VIAL ONE (12:50)
[2019-07-12] MEDS ORDERED: GLYCOPYRROLATE 0.2 MG/ML 2 ML VIAL ONE (12:50)
[2019-07-12] MEDS ORDERED: BUPIVACAINE (PF) 0.25% 30 ML VIAL SQ ONE (13:16)
[2019-07-12] MEDS ORDERED: NALOXONE 0.4 MG/ML 1 ML VIAL IV PRN (14:03)
[2019-07-12] MEDS ORDERED: Acetaminophen-Codeine 300-30mg TAB PO PRN (14:03)
--- NOTE | 2019-07-12 14:05 | P.OP ---
Date of Procedure: 07/12/19 Procedure(s) Performed: PREOPERATIVE DIAGNOSIS: Chronic cholecystitis with recent choledocholithiasis POSTOPERATIVE DIAGNOSIS: Same PROCEDURE: Laparoscopic cholecystectomy SURGEON: Melinda EBL: Minimal see anesthesia record ANESTHESIA: Gen. COMPLICATIONS: None OPERATIVE PROCEDURE: The patient was brought and placed on the operating room table in the supine position. The patient was placed under general anesthesia at that time. The abdomen was prepped and draped in the usual sterile fashion. A small vertical infraumbilical incision was made. The fascia was grasped with the Ben forceps. The fascia was retracted anteriorly. The Veress needle was advanced into the peritoneal cavity. The saline drop test was normal. Insufflation took place up to 15 mmHg. A 5 mm optical trocar was advanced and the peritoneal cavity. 2 additional 5 mm trochars were placed in the right upper quadrant under direct visualization. A 12 mm trocar was advanced into the epigastric incision site. The gallbladder was retracted superiorly and laterally. The peritoneum overlying the infundibulum was bluntly dissected. The patient's cystic duct was visualized. The junction between the cystic duct common and hepatic duct was identified. The cystic duct was then divided after placement of 3 12 mm clips on the patient's side and one on the specimen side. The cystic artery was identified and clipped as well. A small vessel was seen along the gallbladder fossa and clipped as well. The gallbladder was then removed from the liver bed using electrocautery. The gallbladder was then removed from the epigastric trocar site with an Endo Catch bag. The gallbladder fossa was irrigated with saline. There was no evidence of any bleeding or biliary drainage seen. The fascia at the 12 millimeter site was closed using a Shelton-Gerald 0 Vicryl stitch. The trochars were then removed. The skin at all 4 sites was closed using a 4-0 Monocryl stitch. Skin glue was utilized on the incision sites. At the end of this procedure the sponge and needle counts were correct. DISPOSITION: Stable to the recovery room
[2019-07-12] MEDS ORDERED: HYDROmorphone 1 MG/ML 1 ML SYRINGE IVP ONE ×4 (14:20→14:54)
[2019-07-12 14:26] VITALS: TEMP 97.1
[2019-07-12 15:50] VITALS: BP 125/77; PULSE 56; RESP 16
== END 2019-07-12 17:10 | disposition home or self-care (01) ==
LOC: OR 11:37
PROVIDERS: ATTEND Surgery
DX: K80.10 Calculus of gallbladder with chronic cholecystitis without obstruction (principal); Z90.710 Acquired absence of both cervix and uterus
CPT/HCPCS: 47562; 88304; J2250; J1644; J1100; J3010; J2710; J2405; J1885; J1170; J0330; J2704

== ENCOUNTER → 2019-07-25 | Outpatient (CLI) | payer BC ==
[2019-07-25 18:40] LABS: African American GFR (CKD) 126.5 (60.0-200.0); Albumin 4.2 g/dL (3.80-4.90); Albumin/Globulin Ratio 2.1 (1.60-3.17); Anion Gap 4.6 mmol/L (4.00-12.00); BUN/Creat Ratio 14.29 Ratio (12.00-20.00); Carbon Dioxide 29.4 mmol/L (21.6-31.8); Total Bilirubin 0.6 mg/dL (0.3-1.2); Total Protein 6.2 g/dL (6.2-8.2)
== END | disposition home or self-care (01) ==
LOC: LABWHC1 11:11
PROVIDERS: ATTEND Surgery
DX: K81.9 Cholecystitis, unspecified (principal)
CPT/HCPCS: 36415; 80053

== ENCOUNTER → 2023-05-24 | Outpatient (CLI) | payer BC ==
--- NOTE | 2023-05-25 09:34 | MM ---
Reason for Exam: Screening (asymptomatic). Baseline mammogram. Patient History: Menarche at age 13. First Full-Term at age 19. Hysterectomy at age 31. Risk Values: Ramona 5 year model risk: 0.6%. NCI Lifetime model risk: 8.0%. Prior Study Comparison: Patient's first Mammogram. Tissue Density: The breast tissue is heterogeneously dense. This may lower the sensitivity of mammography. Findings: Analyzed By CAD. Asymmetric nodular density central left breast 3.3 cm from the nipple. Additional views are recommended. No masses right breast. No suspicious calcifications evident. Overall Assessment: Incomplete: need additional imaging evaluation, BI-RAD 0 Management: Diagnostic Mammogram of the left breast. . Patient should continue monthly self-breast exams. A clinical breast exam by your physician is recommended on an annual basis. This exam should not preclude additional follow-up of suspicious palpable abnormalities. Note on Ramona scores and lifetime risk: 1. A Ramona score greater than 3% is considered moderate risk. If this is the case, consider specialist referral to assess eligibility for a risk reducing agent. 2. If overall lifetime risk for the development of breast cancer is 20% or higher, the patient may qualify for future screening with alternating mammogram and breast MRI. Electronically signed and approved by: Gil Eid M.D. Radiologis
== END | disposition home or self-care (01) ==
LOC: RADMAMWWP 16:37
PROVIDERS: ATTEND Family Medicine
DX: Z12.31 Encounter for screening mammogram for malignant neoplasm of breast (principal)
CPT/HCPCS: 77063; 77067

== ENCOUNTER → 2023-06-21 | Outpatient (CLI) | payer BC ==
--- NOTE | 2023-06-21 15:26 | MM ---
Reason for Exam: Additional evaluation requested from abnormal screening. Last screening mammogram was performed less than 1 month ago. Patient History: Menarche at age 13. First Full-Term at age 19. Hysterectomy at age 31. Risk Values: Ramona 5 year model risk: 0.6%. NCI Lifetime model risk: 8.0%. Prior Study Comparison: 05/24/2023 Bilateral MG 3D screening mammo w/cad, [facility]. Tissue Density: Left: There are scattered fibroglandular densities. Findings: Analyzed By CAD. The questioned central asymmetric density on the CC view anterior to middle depth becomes much less defined on spot 3-D views. No definite suspicious mass is seen. Given the appearance on the screening exam, precautionary short interval follow up recommended. Overall Assessment: Probably benign, BI-RAD 3 Management: Diagnostic Mammogram of the left breast in 6 months. Results were given to the patient verbally at the time of exam. Patient should continue monthly self-breast exams. A clinical breast exam by your physician is recommended on an annual basis. This exam should not preclude additional follow-up of suspicious palpable abnormalities. Note on Ramona scores and lifetime risk: 1. A Ramona score greater than 3% is considered moderate risk. If this is the case, consider specialist referral to assess eligibility for a risk reducing agent. 2. If overall lifetime risk for the development of breast cancer is 20% or higher, the patient may qualify for future screening with alternating mammogram and breast MRI. Electronically signed and approved by: Cedric Mckeon M.D. Radiologist
== END | disposition home or self-care (01) ==
LOC: RADMAMWWP 15:01
PROVIDERS: ATTEND Family Medicine
DX: R92.8 Other abnormal and inconclusive findings on diagnostic imaging of breast (principal)
CPT/HCPCS: 77061; 77065

== ENCOUNTER → 2024-01-03 | Outpatient (CLI) | payer BC ==
--- NOTE | 2024-01-03 10:06 | MM ---
Reason for Exam: Follow-up at short interval from prior study. Last screening mammogram was performed 7 month(s) ago. Patient History: Menarche at age 13. First Full-Term at age 19. Hysterectomy at age 31. Risk Values: Ramona 5 year model risk: 0.6%. NCI Lifetime model risk: 8.0%. Prior Study Comparison: 05/24/2023 Bilateral MG 3D screening mammo w/cad, [facility]. 06/21/2023 Left MG 3D work up w/cad , [facility]. Tissue Density: Left: There are scattered areas of fibroglandular density. Findings: Analyzed By CAD. Pattern appears stable. Previous focal asymmetry in is not identified on the current examination. No suspicious groups of microcalcifications, spiculated or lobular masses, architectural distortion or other secondary signs of malignancy are mammographically apparent. Overall Assessment: Benign, BI-RAD 2 Management: Screening Mammogram of both breasts in 6 months. A negative mammogram report should not preclude additional follow up of suspicious palpable abnormalities. Patient should continue monthly self breast exam. A clinical breast exam by your physician is recommended on an annual basis and results should be correlated with mammographic findings. Electronically signed and approved by: John Vega D.O. Radiologis
== END | disposition home or self-care (01) ==
LOC: RADMAMWWP 09:35
PROVIDERS: ATTEND Family Medicine
DX: R92.322 Mammographic fibroglandular density, left breast (principal); N60.02 Solitary cyst of left breast
CPT/HCPCS: 77061; 77065

== ENCOUNTER → 2024-05-21 | Outpatient (CLI) | payer BC | END | disposition home or self-care (01) | LOC: LABPRL 17:50 | PROVIDERS: ATTEND Family Medicine | DX: Z00.00 Encounter for general adult medical examination without abnormal findings (principal) | CPT/HCPCS: 80053; 80061; 83036; 84439; 84443; 85025 ==